=== PATIENT | female | born 1950 | race Caucasian/White ===

== ENCOUNTER → 2016-08-29 | Outpatient (CLI) | payer MEDICARE ==
[~2016-08-29] MED LIST: ALBUAER2 INH; BUPR-79 PO; CALCTAB7 PO; CHOL100027 PO; DENOINJ INJ; GABA-113 PO; LEVO88TA22 PO; LIOT5TAB PO; LORA-741 PO; MOMETASONE TOP; MULTTAB58 PO; ONDA8TAB6 PO; OXYC-57 PO; OXYC1TAB3 PO; PEMBROLIZUMAB IV; PROLAMINE IODINE PO; [UNRECOGNIZED DRUG - CODE] TOP; colace
--- NOTE | 2016-08-29 15:29 | DIAGNOSTIC IMAGING REPORT ---
PET/CT HISTORY: MELANOMA TECHNIQUE: PET/CT was performed from the skull vertex through the feet following the intravenous administration of 15 mCi of F18-FDG. Non-contrast CT imaging was performed over the same range without breath-hold for attenuation correction of PET images and anatomic correlation, but not for primary interpretation as it is not of standard diagnostic quality. CT DOSE: COMPARISON: PET CT 06/04/2016. FINDINGS: HEAD AND NECK: There are symmetric FDG uptake within the brain. There are are a few left posterior cervical chain lymph nodes which demonstrate monophasic uptake. These lymph nodes have slightly increased in size compared to the prior study. Dominant lymph node measures 8 mm, previously measuring 5 mm. These demonstrate an SUV max of 2.4. Small fluid level within the left maxillary sinus. CHEST: No FDG avid or enlarged mediastinal, hilar, or axillary lymph nodes. No pleural or pericardial effusions. Right jugular Port-A-Cath terminates in the SVC. Biapical pleural-parenchymal scarring persists. Bilateral paraspinal fibrotic change at the level of the posterior fusion is also stable. Stable to slightly improved patchy mild FDG uptake associated with the fibrotic change. Stable 7 mm nodule within the left lower lobe. The FDG uptake associated with the nodule has resolved in the interval. Stable 4 mm subpleural nodule at the base of the right lower lobe on image 131. This does not demonstrate abnormal FDG uptake. There is also stable 2 mm nodule within the right middle lobe on image 107. This does not demonstrate abnormal FDG uptake. No new pulmonary nodules identified. ABDOMEN/PELVIS: The FDG uptake at the superior margin of the spleen on the prior study has resolved. There are no FDG avid hepatic or splenic lesions. No FDG avid lymphadenopathy within the abdomen or pelvis. LOWER EXTREMITIES: The 14 mm sclerotic lesion within the proximal left tibia is again noted. This demonstrates decrease in FDG uptake with an SUV max of 3.5. This previously demonstrated an SUV max of 4.7. IMPRESSION: 1. Slight increase in size and mild FDG uptake within a few left posterior cervical chain lymph nodes. This is concerning for developing metastatic disease. 2. Otherwise, the additional sites of metastatic disease as described above demonstrate decreased or resolved FDG uptake consistent with improvement. Electronically signed by: Zelalem De León M.D. 08/29/2016 3:28 PM
== END | disposition home or self-care (01) ==
LOC: C.PET 08:28
PROVIDERS: ATTEND Nurse Practitioner Family
DX: C43.9 Malignant melanoma of skin, unspecified (principal); C79.51 Secondary malignant neoplasm of bone

== ENCOUNTER → 2016-09-20 | Outpatient (CLI) | payer MEDICARE ==
[~2016-09-20] MED LIST changes: -OXYC-57 PO
--- NOTE | 2016-09-20 10:10 | DIAGNOSTIC IMAGING REPORT ---
THYROID ULTRASOUND HISTORY: MALIGNANT MELANOMA OF SKIN COMPARISON: PET CT 08/29/2016. FINDINGS: Right lobe: 3.2 x 1.2 x 0.9 cm. No nodules. The gland is heterogeneously hypoechoic. Left lobe: 1.3 x 0.8 x 0.6 cm. No nodules. The gland is atrophic and heterogeneous hypoechoic. Isthmus: 2 mm in thickness. No nodules. IMPRESSION: Atrophic and heterogeneous thyroid gland. No nodules identified. Electronically signed by: Zelalem De León M.D. 09/20/2016 10:08 AM Dictated Date/Time: 09/20/2016 10:07 AM
== END | disposition home or self-care (01) ==
LOC: C.ULTR 09:14
PROVIDERS: ATTEND Nurse Practitioner Family
DX: C43.9 Malignant melanoma of skin, unspecified (principal); C79.51 Secondary malignant neoplasm of bone

== ENCOUNTER → 2016-12-05 | Outpatient (CLI) | payer MEDICARE ==
--- NOTE | 2016-12-05 13:02 | DIAGNOSTIC IMAGING REPORT ---
PET/CT CLINICAL HISTORY: Melanoma. COMPARISON STUDY: PET/CT dated 08/29/2016. TECHNIQUE: One hour following the IV administration of 12.93 mCi of F-18 FDG, whole body PET/CT examination was performed from the vertex to the feet. Noncontrast CT is performed for the purposes of anatomic correlation and attenuation correction. Note that this does not reflect a diagnostic CT examination. Images were reviewed on a separate [employer] independent workstation. Fused images were obtained. Standard uptake values reported are maximum values within the region of interest expressed in gm/mL. FINDINGS: PET FINDINGS: Head and neck: There is expected physiologic activity within the brain parenchyma and the salivary glands. Thorax: Evaluation of the thorax demonstrates expected physiologic myocardial activity. A 7 mm pulmonary nodule is again seen in the left lower lobe on image #134. This was not demonstrably FDG avid on today's examination. No new pulmonary nodules are identified. Paraspinous fibrotic change at the level of T5 is again noted. There is no significant FDG activity at this site. Abdomen and pelvis: There is expected activity within the liver, spleen, kidneys, renal collecting system, and bladder. Low-level bowel activity is likely within physical limits. No FDG avid lesions are identified. Lower extremities: A 1.5 cm sclerotic lesion is again seen in the left proximal tibia on axial image #73. This remains FDG avid with a maximum SUV of 2.9. Focal activity anterior to the right gallardo seen on axial image #157. This shows a maximum SUV of 2.1, and dermal thickening is again seen in this region. Unenhanced CT images: The brain parenchyma is normal as visualized. The bony orbits are intact and the orbital contents are within normal limits. The paranasal sinuses are clear. There is a left mastoid effusion. The salivary and thyroid glands are normal as imaged. No cervical lymphadenopathy is seen. There is atherosclerotic calcification of the carotid bulbs. The thoracic aorta is normal in caliber. The heart is normal in size and without pericardial effusion. There is no mediastinal, hilar, or axillary lymphadenopathy. Significant scarring is seen in the lower lobes of the lungs. No airspace consolidation or pleural effusion is identified. See above discussion under PET findings for evaluation of pulmonary lesions. A small hepatic cyst is incidentally noted. The unenhanced liver, gallbladder, spleen, pancreas, adrenal glands, and kidneys are grossly unremarkable. There is atherosclerotic calcification of the abdominal aorta which is normal in caliber. No bowel obstruction is seen. There is colonic diverticulosis without CT evidence of acute diverticulitis. No upper abdominal, retroperitoneal, pelvic sidewall, or inguinal lymphadenopathy is identified. The bladder is decompressed and grossly unremarkable. The uterus is surgically absent. No adnexal lesion is seen. The skeletal structures are osteopenic. A left hip arthroplasty is in place. Extensive fusion hardware is noted in the upper thoracic spine. IMPRESSION: 1. There is no evidence of progressive metastatic disease as compared to 08/29/2016. 2. Mildly FDG avid cervical chain lymph nodes suggested on the 12/05/2016 examination are no longer appreciated. No FDG avid cervical nodes are seen on today's examination. 3. Again seen is a 1.5 cm FDG avid sclerotic lesion in the left tibia. 4. Focal dermal activity is again seen in the anterior right ankle. 5. A 7 mm left lower lobe pulmonary nodule is unchanged in appearance. This was not demonstrably FDG activity on today's examination. 6. Paraspinous fibrotic change at T5 is similar to previous. 7. Additional findings as above. Electronically signed by: Sterling Potter M.D. 12/05/2016 1:00 PM Dictated Date/Time: 12/05/2016 12:43 PM
== END | disposition home or self-care (01) ==
LOC: C.PET 09:27
PROVIDERS: ATTEND Nurse Practitioner Family
DX: C43.9 Malignant melanoma of skin, unspecified (principal)

== ENCOUNTER → 2017-02-01 | Outpatient (CLI) | payer MEDICARE ==
[~2017-02-01] MED LIST changes: +GADAVIST IV PRN
--- NOTE | 2017-02-01 12:12 | DIAGNOSTIC IMAGING REPORT ---
CT SCAN OF THE THORACIC SPINE WITHOUT IV CONTRAST CLINICAL HISTORY: Thoracic back pain. History of previous thoracic spinal mass and surgery. COMPARISON STUDY: MRI of the thoracic spine dated 12/23/2014. CT scan of the thoracic spine dated 08/14/2013. PET/CT dated 12/05/2016. TECHNIQUE: CT scan of the thoracic spine is performed from the lower cervical spine to the upper lumbar spine. Images are reviewed in the axial, sagittal, and coronal planes. IV contrast was not administered for this examination. The examination is significantly degraded by streak artifact from metallic orthopedic spinal hardware. CT DOSE: 833.39 mGy.cm FINDINGS: The skeletal structures are osteopenic. There is evidence of previous surgical resection involving T5 with a severe compression deformity at this level status post vertebroplasty. Retropulsed fragments are similar to previous and cause severe central canal stenosis at this level. Fragments are retropulsed by up to 9 mm. Vertebral body height is otherwise maintained throughout the thoracic spine. Hyperkyphosis is observed. There are postoperative changes from laminectomy and posterior fusion seen from T3 through T8. The orthopedic hardware is intact as visualized. Intrapedicular screws are present at all levels with the exception of T4. There is unchanged permeative destruction of the right transverse process of T4. There is ill-defined abnormal soft tissue throughout this region, with a rind of abnormal paravertebral soft tissue seen anteriorly at T4. This extends approximately 3 cm in craniocaudal length, from the levels of T4 through T6. The rind of tissue measures up to 1.2 cm in thickness. No destructive bony lesions are seen at any of the remaining thoracic levels. Degenerative endplate sclerosis is seen at T4-T5 and T5-T6. There is likely an acute insufficiency fracture involving the inferior endplate of T4. This is best seen on sagittal image number 28. There is a chronic right posterior sixth rib fracture. Spondylotic change is partially imaged in the lower cervical region. There are 1 to 2 mm pulmonary nodules seen at the right lung base. Linear atelectasis versus scarring is noted at the left lung base. A central venous infusion port is partially imaged. IMPRESSION: 1. The examination is significantly degraded by streak artifact from extensive orthopedic spinal hardware. 2. There are postoperative changes involving the T5 vertebral body with a severe compression deformity at this level and evidence of previous vertebroplasty. 3. Large retropulsed fragments at T5 contribute to severe central canal stenosis at this level. 4. There is an acute to subacute insufficiency fracture involving the inferior endplate of T4. 5. Abnormal soft tissue is seen at the operative level at T5 with a rind of abnormal paravertebral soft tissue. This has not significantly changed from the 12/05/2016 PET assessment. This was not demonstrably FDG avid and likely represents postoperative change/fibrosis. Residual tumor would be impossible to exclude. 6. Additional findings as above. Dictated: 02/01/2017 10:39 AM Transcribed: 02/01/2017 12:12 PM [email or web address] Electronically signed by: Sterling Potter M.D. 02/01/2017 12:24 PM Dictated Date/Time: 02/01/2017 10:39 AM
--- NOTE | 2017-02-01 13:26 | DIAGNOSTIC IMAGING REPORT ---
MRI OF THE THORACIC SPINE COMBO CLINICAL HISTORY: Thoracic back pain. 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 COMPARISON STUDY: CT scan of the thoracic spine performed concurrently on 02/01/2017. MRI of the thoracic spine dated 12/23/2014. PET/CT dated 12/05/2016. TECHNIQUE: MRI of the thoracic spine is performed utilizing various T1 and T2-weighted sequences in the axial and sagittal planes. Contrast-enhanced sequences are acquired following the IV administration of 7.4 cc of Gadavist. The examination is significantly compromised by susceptibility artifact from orthopedic spinal hardware. This severely compromises interpretation. The examination is also degraded by motion artifact. FINDINGS: Again seen are postoperative changes from resection of T5. There is a severe compression deformity of T5. Susceptibility artifact at this level is consistent with previous vertebroplasty when correlated with the prior CT scan. Retropulsed fragments at this level contribute to moderate to severe compromise of the central canal. The minimum AP diameter measures approximately 6 mm. Vertebral body height is otherwise maintained throughout the thoracic spine. There are postoperative changes from laminectomy and posterior fusion from T3 through T8. Assessment of the marrow signal at these levels is severely degraded. The inferior endplate insufficiency fracture seen by CT is not apparent by MRI. There is soft tissue identified posteriorly and to the right at T5 at the previous operative site. There is a rind of abnormal paravertebral soft tissue edema seen at T5. This is unchanged from previous. Visualized portions of the thoracic spinal cord are grossly normal in morphology and signal intensity. This is not well evaluated. No abnormal enhancement is suggested. The conus medullaris terminates at the level of L1. Mild degenerative disc desiccation is noted throughout the thoracic spine. No large disc herniation is seen. Disc bulge is noted at L1-L2. There is no evidence of neural foraminal stenosis in the lower thoracic region. The upper thoracic region is not well visualized. No pleural effusion is seen. IMPRESSION: 1. Significantly compromised examination due to extensive susceptibility artifact from orthopedic hardware. 2. There is postoperative change involving T5 with a severe compression deformity, evidence of previous vertebroplasty, and a large retropulsed fragment at this level contributing to moderate to severe central canal stenosis. 3. The inferior endplate insufficiency fracture of T4 suggested by CT is not apparent by MRI. The marrow signal is obscured by susceptibility artifact. 4. Abnormal soft tissue at the operative level at T5 with a rind of abnormal paravertebral soft tissue at this level that is unchanged from prior studies. This likely represents scarring/fibrosis, as this was not PET avid on the recent PET/CT. 5. Additional findings as above. Dictated: 02/01/2017 12:35 PM Transcribed: 02/01/2017 1:25 PM [email or web address] Electronically signed by: Sterling Potter M.D. 02/01/2017 1:45 PM Dictated Date/Time: 02/01/2017 12:35 PM
== END | disposition home or self-care (01) ==
LOC: C.CTS 09:46
PROVIDERS: ATTEND Specialist
DX: M54.40 Lumbago with sciatica, unspecified side (principal)

== ENCOUNTER → 2017-03-04 | Outpatient (CLI) | payer OTHER ==
[~2017-03-04] MED LIST changes: -GADAVIST IV PRN
--- NOTE | 2017-03-05 08:06 | DIAGNOSTIC IMAGING REPORT ---
PET/CT CLINICAL HISTORY: Melanoma. COMPARISON STUDY: Prior PET/CT scans, most recently dated 12/05/2016 and 08/29/2016. TECHNIQUE: One hour following the IV administration of 13.4 mCi of F-18 FDG, whole body PET/CT examination was performed from the vertex to the feet. Noncontrast CT is performed for the purposes of anatomic correlation and attenuation correction. Note that this does not reflect a diagnostic CT examination. Images were reviewed on a separate [employer] independent workstation. Fused images were obtained. Standard uptake values reported are maximum values within the region of interest expressed in gm/mL. FINDINGS: PET FINDINGS: Head and neck: There is expected physiologic activity within the brain parenchyma and the salivary glands. Low level pharyngeal activity is likely within physiologic limits. Mildly FDG avid left cervical chain lymph nodes are seen on image #58. These measure up to 9 mm and show maximum SUV of 3.0. Thorax: Evaluation of the thorax demonstrates expected physiologic myocardial activity. A 7 mm pulmonary nodule is again seen in the left lower lobe on image #127. This was not demonstrably FDG avid on today's examination. No new pulmonary nodules are identified. Paraspinous fibrotic change at the level of T5 is again noted. There is evidence of hardware removal from the thoracic spine as compared to 12/05/2016. There is evidence of previous vertebroplasty of T5. Large retropulsed fragments are identified. There is nonspecific abnormal FDG activity throughout the operative region. This demonstrates a maximum SUV of 5.0. Abdomen and pelvis: There is expected activity within the liver, spleen, kidneys, renal collecting system, and bladder. Low-level bowel activity is likely within physical limits. No FDG avid lesions are identified. Lower extremities: A 1.5 cm sclerotic lesion is again seen in the left proximal tibia on axial image #68. This remains FDG avid with a maximum SUV of 3.4. Focal activity anterior to the right gallardo seen on axial image #149. This shows a maximum SUV of 2.0, and dermal thickening is again seen in this region. Unenhanced CT images: The brain parenchyma is normal as visualized. The bony orbits are intact and the orbital contents are within normal limits. The paranasal sinuses mastoid air cells appear clear. The salivary and thyroid glands are normal as imaged. No cervical lymphadenopathy is seen. There is atherosclerotic calcification of the carotid bulbs. A right internal jugular central venous infusion port is in place. The thoracic aorta is normal in caliber. The heart is normal in size and without pericardial effusion. There is no mediastinal, hilar, or axillary lymphadenopathy. Significant scarring is seen in the lower lobes of the lungs. No airspace consolidation or pleural effusion is identified. See above discussion under PET findings for evaluation of pulmonary lesions. A small hepatic cyst is incidentally noted. The unenhanced liver, gallbladder, spleen, pancreas, adrenal glands, and kidneys are grossly unremarkable. There is atherosclerotic calcification of the abdominal aorta which is normal in caliber. No bowel obstruction is seen. There is colonic diverticulosis without CT evidence of acute diverticulitis. No upper abdominal, retroperitoneal, pelvic sidewall, or inguinal lymphadenopathy is identified. The bladder is decompressed and grossly unremarkable. The uterus is surgically absent. No adnexal lesion is seen. The skeletal structures are osteopenic. A left hip arthroplasty is in place. Postoperative changes identified in the thoracic spine are discussed above. IMPRESSION: 1. Mildly FDG avid left cervical chain lymph nodes are identified, and measure less than 1 cm in length. These were not FDG avid on the 12/05/2016 examination but did show FDG uptake on the 08/29/2016 examination. These remain indeterminant and may be on a reactive basis given recent thoracic surgery. Attention at follow-up is recommended. 2. There is evidence of interval hardware removal from the thoracic spine as compared to 12/05/2016. There is diffuse FDG activity in this region which is nonspecific and likely related to recent surgery. 3. Again seen is a 1.5 cm FDG avid sclerotic lesion in the left tibia. 4. Focal dermal activity is again seen in the anterior right ankle. 5. A 7 mm left lower lobe pulmonary nodule is unchanged in appearance. This was not demonstrably FDG but is likely too small for PET characterization. No new pulmonary nodules are clearly visualized. 6. Paraspinous fibrotic change at T5 is similar to previous likely treatment related. 7. Pharyngeal activity is likely within physiologic limits. Attention at follow-up is recommended. 8. Additional findings as above. Electronically signed by: Sterling Potter M.D. 03/05/2017 8:05 AM Dictated Date/Time: 03/05/2017 7:44 AM
== END | disposition home or self-care (01) ==
LOC: C.PET 14:28
PROVIDERS: ATTEND Internal Medicine Hematology & Oncology
DX: C43.9 Malignant melanoma of skin, unspecified (principal); C79.51 Secondary malignant neoplasm of bone

== ENCOUNTER → 2017-05-17 | Outpatient (CLI) | payer OTHER ==
--- NOTE | 2017-05-17 13:02 | DIAGNOSTIC IMAGING REPORT ---
CHEST 2 VIEWS ROUTINE CLINICAL HISTORY: SOB MALIGNANT MELANOMA COMPARISON STUDY: 11/21/2015 FINDINGS: There is a right-sided A-Port catheter projected over the superior vena cava. The spinal hardware has been removed. The heart is the upper limits of normal in size. The patient is hyperinflated. There is no focal pulmonary consolidation. There are no pleural effusions. Linear left basilar opacities are likely atelectatic. There is evidence for prior upper thoracic vertebral plasty. There are right paravertebral densities, likely postinflammatory/fibrotic.[ IMPRESSION: No active disease in the chest. Electronically signed by: Claudio Conner M.D. 05/17/2017 1:01 PM Dictated Date/Time: 05/17/2017 12:59 PM
--- NOTE | 2017-05-17 14:00 | DIAGNOSTIC IMAGING REPORT ---
NUCLEAR PULMONARY VENTILATION/PERFUSION SCAN CLINICAL HISTORY: Dyspnea. COMPARISON STUDY: Chest x-ray dated 05/17/2017. Correlation is made with chest CT dated 08/05/2015. TECHNIQUE: Initially, ventilation images of both lungs are obtained following the inhalation of 32.1 mCi of aerosolized technetium 99m DTPA. Subsequently, perfusion images of both lungs were obtained following the IV administration of 5.5 mCi of technetium 99m MAA. Ventilation and perfusion images were acquired in the anterior, posterior, and oblique projections. FINDINGS: A chest x-ray performed 05/17/2017 shows chronic interstitial thickening. No airspace consolidation or pleural effusion is identified. The ventilation of both lungs is heterogeneous and symmetric. Deposition of tracer within the central airways suggests obstructive physiology. Inhaled tracer is present in the stomach. Pulmonary perfusion is slightly heterogeneous. No segmental perfusion defects are identified. IMPRESSION: Findings are considered low probability for pulmonary embolus. Electronically signed by: Sterling Potter M.D. 05/17/2017 1:59 PM Dictated Date/Time: 05/17/2017 1:56 PM
== END | disposition home or self-care (01) ==
LOC: C.NUCL 12:19
PROVIDERS: ATTEND Nurse Practitioner Family
DX: C45.9 Mesothelioma, unspecified (principal); C79.51 Secondary malignant neoplasm of bone

== ENCOUNTER → 2017-05-30 | Outpatient (CLI) | payer OTHER ==
--- NOTE | 2017-06-03 14:45 | PULMONARY FUNCTION TEST ---
CLINICAL DATA: 67-year-old female with a height of 68 inches and a weight of 106 pounds referred SANDRA Valdez for evaluation of shortness of breath in the setting of malignant melanoma and bone cancer. Spirometry pre- and post-bronchodilator, lung volumes, and DLCO were performed. FINDINGS: Pre-bronchodilator spirometry is within normal limits. FVC was 85% of predicted. FEV1 was 86% of predicted. [id number] was 83% of predicted. There was no significant change after inhaled bronchodilator. Lung volumes show a very slight reduction in residual volume at 66% of predicted. Otherwise, lung volumes are normal. DLCO is mildly reduced at 70% of predicted with a normal dlco/VA of 113% of predicted. IMPRESSION: Normal baseline spirometry with no significant improvement after inhaled bronchodilator. Minimal reduction in residual volume. Mild reduction in DLCO with normal dlco/VA. MTDD
== END | disposition home or self-care (01) ==
LOC: C.RC 13:30
PROVIDERS: ATTEND Nurse Practitioner Family
DX: C43.9 Malignant melanoma of skin, unspecified (principal); C79.51 Secondary malignant neoplasm of bone

== ENCOUNTER → 2017-07-25 | Outpatient (CLI) | payer OTHER ==
--- NOTE | 2017-07-25 12:39 | DIAGNOSTIC IMAGING REPORT ---
(BARIUM SWALLOW) ESOPHAGUS CLINICAL HISTORY: C43.9 MelanomaDO NOT NAVID JUL 09, JUL 16 IN PM OR AUG 06 IN PMRADdysphagia COMPARISON STUDY: None FLUOROSCOPY TIME: 1.0 minutes. FINDINGS: Patient initiated swallowing function well. Esophagus is normal in course and caliber. Mild esophageal irritability. Patient ingested barium tablet medially which passed quickly into the stomach. IMPRESSION: Mild esophageal spasm and/or irritability. Otherwise negative study. The above report was generated using voice recognition software. It may contain grammatical, syntax or spelling errors. Electronically signed by: Ghulam Fine M.D. 07/25/2017 12:38 PM Dictated Date/Time: 07/25/2017 12:37 PM
--- NOTE | 2017-07-25 12:41 | DIAGNOSTIC IMAGING REPORT ---
Study: sniff test. HISTORY: Melanoma. Dysphagia. Fluoroscopic time: 12 seconds FINDINGS: Both diaphragms move appropriately. There is no evidence for diaphragmatic paralysis. There is no paradoxical motion. IMPRESSION: Normal study Electronically signed by: Ghulam Fine M.D. 07/25/2017 12:40 PM Dictated Date/Time: 07/25/2017 12:39 PM
--- NOTE | 2017-07-25 14:41 | ECHOCARDIOGRAM REPORT ---
*NOTICE TO RECEIVING [employer] This information is strictly Confidential and protected under [place] law. [place] law prohibits you from making any further disclosure of this information unless further disclosure is expressly permitted by the written consent of the person to whom it pertains or is authorized by law. A general authorization for the release of medical or other information is not sufficient for this purpose. Hospital accepts no responsibility if the information is made available to any other person, INCLUDING THE PATIENT. Interpretation Summary * Name: CHAS ENAMORADO Study Date: 07/25/2017 12:51 PM BP: 132/66 mmHg * Patient Location: [facility] HR: 78 * : 1950 (M/d/yyyy) Gender: Female Height: 66 in * Age: 67 yrs Ethnicity: CA Weight: 160 lb * Ordering Physician: Babak Lovelace * Referring Physician: Babak Lovelace * Performed By: Denae Almanza RDCS * * Reason For Study: Shortness of Breath, Pulmonary Nodules * BSA: 1.8 m2 * -- Conclusions -- * Left ventricular systolic function is normal. * Grade I diastolic dysfunction, (abnormal relaxation pattern). Procedure Details * A complete two-dimensional transthoracic echocardiogram was performed (2D, M-mode, Doppler and color flow Doppler). Left Ventricle * The left ventricle is normal in size. * There is normal left ventricular wall thickness. * Ejection Fraction = 55-60%. * Left ventricular systolic function is normal. * Grade I diastolic dysfunction, (abnormal relaxation pattern). * The left ventricular wall motion is normal. Right Ventricle * The right ventricle is normal in size and function. * The right ventricular systolic function is normal as assessed by tricuspid annular plane systolic excursion (TAPSE) (normal >1.5 cm). Atria * The left atrial size is normal. * Right atrial size is normal. Mitral Valve * The mitral valve anatomy is normal. * There is trace mitral regurgitation. Tricuspid Valve * The tricuspid valve is not well visualized, but is grossly normal. * Significant tricuspid regurgitation is absent. Aortic Valve * The aortic valve is normal in structure and function. * The aortic valve is trileaflet. * No hemodynamically significant valvular aortic stenosis. * Trace aortic regurgitation. Pericardium/Pleural * There is no pericardial effusion. MMode 2D Measurements and Calculations IVSd 0.71 cm IVSs 1.1 cm LVIDd 4.6 cm LVIDs 3.2 cm LVPWd 0.79 cm LVPWs 1.3 cm IVS/LVPW 0.90 FS 30.8 % EDV(Teich) 99.8 ml ESV(Teich) 41.6 ml EF(Teich) 58.4 % EDV(cubed) 100.5 ml ESV(cubed) 33.4 ml EF(cubed) 66.8 % % IVS thick 55.3 % % LVPW thick 68.8 % LV mass(C)d 110.5 grams LV mass(C)dI 60.8 grams/m\S\2 LV mass(C)s 123.4 grams LV mass(C)sI 67.8 grams/m\S\2 SV(Teich) 58.3 ml SI(Teich) 32.0 ml/m\S\2 SV(cubed) 67.2 ml SI(cubed) 36.9 ml/m\S\2 Ao root diam 2.9 cm Ao root area 6.7 cm\S\2 ACS 2.2 cm LA dimension 3.2 cm LA/Ao 1.1 LVAd ap4 28.9 cm\S\2 LVLd ap4 7.6 cm EDV(MOD-sp4) 92.4 ml EDV(sp4-el) 93.5 ml LVAs ap4 14.6 cm\S\2 LVLs ap4 5.9 cm ESV(MOD-sp4) 32.3 ml ESV(sp4-el) 30.6 ml EF(MOD-sp4) 65.1 % EF(sp4-el) 67.2 % LVAd ap2 25.7 cm\S\2 LVLd ap2 7.9 cm EDV(MOD-sp2) 75.8 ml EDV(sp2-el) 71.1 ml LVAs ap2 15.3 cm\S\2 LVLs ap2 6.7 cm ESV(MOD-sp2) 32.4 ml ESV(sp2-el) 29.7 ml EF(MOD-sp2) 57.3 % EF(sp2-el) 58.2 % LVLd %diff 3.7 % EDV(MOD-bp) 84.0 ml LVLs %diff 12.4 % ESV(MOD-bp) 34.4 ml EF(MOD-bp) 59.1 % SV(MOD-sp4) 60.2 ml SI(MOD-sp4) 33.1 ml/m\S\2 SV(MOD-sp2) 43.4 ml SI(MOD-sp2) 23.9 ml/m\S\2 SV(MOD-bp) 49.6 ml SI(MOD-bp) 27.3 ml/m\S\2 SV(sp4-el) 62.9 ml SI(sp4-el) 34.6 ml/m\S\2 SV(sp2-el) 41.4 ml SI(sp2-el) 22.7 ml/m\S\2 Doppler Measurements and Calculations MV E max bhavana 75.7 cm/sec MV A max bhavana 80.0 cm/sec MV E/A 0.95 MV dec time 0.21 sec Ao V2 max 120.8 cm/sec Ao max PG 5.8 mmHg Ao max PG (full) 3.0 mmHg AI max bhavana 188.7 cm/sec AI max PG 14.2 mmHg AI dec slope 142.8 cm/sec\S\2 AI P1/2t 387.0 msec LV V1 max PG 2.8 mmHg LV V1 max 84.4 cm/sec PA V2 max 66.2 cm/sec PA max PG 1.8 mmHg
== END | disposition home or self-care (01) ==
LOC: C.RAD 11:14
PROVIDERS: ATTEND Internal Medicine Critical Care Medicine
DX: C43.9 Malignant melanoma of skin, unspecified (principal); R06.02 Shortness of breath; R91.8 Other nonspecific abnormal finding of lung field

== ENCOUNTER 2017-10-30 14:42 | Emergency (ER) | payer OTHER ==
[~2017-10-30] VITALS: Ht 168.9 cm; Wt 75.0 kg
[2017-10-30 14:46] VITALS: TEMP 36.8; Ht 168.9 cm; Wt 75.0 kg
[2017-10-30] MEDS ORDERED: BUPR150T5 PO (15:33)
[2017-10-30] MEDS ORDERED: CLOB0.058 TD (15:33)
[2017-10-30] MEDS ORDERED: LEVO88TA3 PO (15:33)
[2017-10-30] MEDS ORDERED: PROLAMINE IODINE PO (15:33)
[2017-10-30] MEDS ORDERED: AUG0.05O4 (15:33)
[2017-10-30] MEDS ORDERED: DICL1GEL12 TOP (15:33)
[2017-10-30] MEDS ORDERED: MOME0.1O TOP (15:33)
[2017-10-30] MEDS ORDERED: METH5TAB2 PO (15:33)
[2017-10-30] MEDS ORDERED: DPRSCR45 TOP (15:33)
[2017-10-30 16:00] LABS: BASO % 0.6 %; BASO ABS # 0.02 K/uL (0-0.2); EOS % 4.9 %; EOS ABS # 0.16 K/uL (0-0.5); HEMATOCRIT 37.1 % (37-47); HEMOGLOBIN 12.5 g/dL (12.0-16.0); LYMPH % 29.9 %; LYMPH ABS # 0.97 K/uL (1.2-3.4); MEAN CELL VOLUME 91.4 fL (80-100); MEAN CORPUSCULAR HEMOGLOBIN 30.8 pg (25-34); MEAN CORPUSCULAR HGB CONC 33.7 g/dl (32-36); MEAN PLATELET VOLUME 10.5 fL (7.4-10.4); MONO ABS # 0.39 K/uL (0.11-0.59); NEUT % 52.6 %; PLATELET COUNT 131 K/uL (130-400); RED CELL DISTRIBUTION WIDTH CV 13.4 % (11.5-14.5); RED CELL DISTRIBUTION WIDTH SD 44.6 fL (36.4-46.3); WHITE BLOOD COUNT 3.24 K/uL (4.8-10.8)
[2017-10-30 16:09] LABS: PTT PATIENT 29.1 SECONDS (21.0-31.0)
[2017-10-30 16:19] LABS: ALBUMIN 3.6 gm/dl (3.4-5.0); ALT/SGPT 24 U/L (12-78); BLOOD UREA NITROGEN 10 mg/dl (7-18); CALCIUM 8.8 mg/dl (8.5-10.1); CARBON DIOXIDE 28 mmol/L (21-32); CREATININE 0.72 mg/dl (0.60-1.20); GLUCOSE 123 mg/dl (70-99); LIPASE 189 U/L (73-393); POTASSIUM 3.7 mmol/L (3.5-5.1); SODIUM 139 mmol/L (136-145)
[2017-10-30 16:22] LABS: ALKALINE PHOSPHATASE 95 U/L (45-117); AST/SGOT 18 U/L (15-37); TOTAL PROTEIN 6.8 gm/dl (6.4-8.2)
[2017-10-30] MEDS ORDERED: GADAVIST IV PRN (19:30)
--- NOTE | 2017-10-30 20:05 | DIAGNOSTIC IMAGING REPORT ---
MRI OF THE BRAIN COMBO CLINICAL HISTORY: Bilateral lower extremity weakness and numbness. History of metastatic melanoma. COMPARISON STUDY: MRI of the brain dated 02/16/2016. TECHNIQUE: MRI of the brain was performed utilizing various T1 and T2-weighted sequences in the axial, sagittal, and coronal planes. Contrast-enhanced sequences were acquired following the administration of 7.5 cc of Gadavist. FINDINGS: Brain parenchyma: There is mild subcortical and periventricular microangiopathic disease. There is no hemorrhage or mass effect. There is no restricted diffusion to suggest acute ischemia. No enhancing mass lesion is identified on the postcontrast images. Raymond-white matter differentiation is preserved. No extra-axial fluid collection is seen. The cerebellar tonsils are normal in configuration. Ventricles, sulci, and cisterns: Normal in configuration. Pituitary and sella: Unremarkable. Intracranial vasculature: Normal flow voids are maintained at the skull base. Orbits: The bony orbits are grossly intact. Orbital contents are normal in appearance noting bilateral ocular lens implants. Sinuses and mastoids: Clear. Calvarium: Unremarkable. Cervical cord: Partially visualized cervical spinal cord is normal in morphology and signal intensity. IMPRESSION: No acute intracranial abnormality. Electronically signed by: Sterling Potter M.D. 10/30/2017 8:03 PM Dictated Date/Time: 10/30/2017 8:00 PM
--- NOTE | 2017-10-30 20:49 | DIAGNOSTIC IMAGING REPORT ---
MRI OF THE THORACIC SPINE COMBO CLINICAL HISTORY: Bilateral lower extremity weakness and numbness. 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 COMPARISON STUDY: MRI of the thoracic spine dated 02/01/2017. CT scan of the thoracic spine dictated 02/01/2017. PET/CT dated 05/31/2017. TECHNIQUE: MRI of the thoracic spine is performed utilizing various T1 and T2-weighted sequences in the axial and sagittal planes. Contrast-enhanced sequences are acquired following the IV administration of 7.5 cc of Gadavist. The examination is significantly compromised by motion artifact. FINDINGS: Again seen are postoperative changes from resection of T5. There is a severe compression deformity of T5. Susceptibility artifact at this level is consistent with previous vertebroplasty when correlated with the prior CT scan. Retropulsed fragments at this level contribute to moderate to severe compromise of the central canal. The minimum AP diameter measures approximately 5 mm. Again seen are postoperative changes from laminectomy from T3 through T8. Interpedicular screws have been removed previous. There is a mild chronic inferior endplate compression deformity of T4. There is a mild acute superior endplate insufficiency fracture of T6 with significant marrow edema. Vertebral body height is otherwise maintained throughout the thoracic spine. There is significant hyperkyphosis centered at T5. Again seen is a rind of abnormal enhancing paravertebral soft tissue edema at the T5 level which is unchanged from prior examinations. There is no clear evidence of enhancing soft tissue impingement on the central canal. There is myelomalacia identified within the cervical cord at the T5 level, likely related to chronic stenosis. No abnormal cord enhancement is suggested the postcontrast series. The conus medullaris terminates at the level of L1. Mild degenerative disc desiccation is noted throughout the thoracic spine. No large disc herniation is seen. Disc bulge is noted at L1-L2 and L2-L3. There is likely bilateral neural foraminal stenosis at T4-T5 and T5-T6. IMPRESSION: 1. Significantly motion compromised examination. 2. Again seen are postoperative changes involving T5 with a severe compression deformity at this level, evidence of previous vertebroplasty, and a large retropulsed fragment which causes moderate to severe central canal stenosis. Orthopedic hardware has been removed from previous. 3. There is myelomalacia and thinning of the cervical cord at the level of T5, almost certainly chronic. No abnormal enhancement is seen. 4. There is a mild acute superior endplate fracture of T6 with significant marrow edema. 5. There is a mild chronic inferior endplate compression deformity of T4. 6. There is unchanged appearance of an enhancing rind of paravertebral soft tissue at T5 as compared to prior study. This likely represents scarring/fibrosis. 7. There is no clear evidence of an enhancing soft tissue lesion impinging on the central canal. 8. No new bony metastatic lesion is suggested. Electronically signed by: Sterling Potter M.D. 10/30/2017 8:48 PM Dictated Date/Time: 10/30/2017 8:36 PM
--- NOTE | 2017-10-30 21:17 | DIAGNOSTIC IMAGING REPORT ---
MRI OF THE CERVICAL SPINE COMBO CLINICAL HISTORY: Bilateral lower extremity weakness and numbness. History of metastatic melanoma. COMPARISON STUDY: CT scan of the neck dated 08/05/2015. TECHNIQUE: MRI of the cervical spine is performed using various T1 and T2-weighted sequences in the axial and sagittal planes. Contrast-enhanced images were acquired following the IV administration of 7.5 cc of Gadavist. The examination is significantly compromised by motion artifact. FINDINGS: Cervical spine: Vertebral body height is maintained throughout the cervical spine. There is minimal anterolisthesis at C4-C5 and minimal retrolisthesis at C5-C6. Alignment is otherwise preserved. Mild hyperlordosis is identified. The spinous processes appear intact. The atlantodental articulation appears maintained noting productive degenerative change. No destructive bony lesion is suggested in the cervical region. Intervertebral discs: Degenerative disc desiccation and loss of height is seen throughout the cervical spine. Loss of disc height is moderate at C5-C6. Spinal cord: The cervical spinal cord is normal in morphology and signal intensity. No abnormal enhancement is identified on the postcontrast sequences. C2-C3: Unremarkable. C3-C4: Uncovertebral and facet arthropathy cause moderate left neural foraminal stenosis. The central canal is clear. C4-C5: A posterior disc osteophyte complex effaces the ventral subarachnoid space. Facet arthropathy causes mild left-sided neural foraminal stenosis. C5-C6: A small posterior disc osteophyte complex abuts the ventral cord. Uncovertebral and facet arthropathy causes moderate to severe bilateral neural foraminal stenosis. C6-C7: A posterior disc osteophyte complex abuts the ventral cord. Uncovertebral arthropathy causes mild bilateral neuroforaminal stenosis. C7-T1: Unremarkable. Soft tissues: The paraspinous and prevertebral soft tissues are normal as visualized. Brain parenchyma: The partially imaged brain parenchyma the skull base is normal in appearance. IMPRESSION: 1. No destructive bony lesion is seen involving the cervical spine. 2. The cervical spinal cord is normal in morphology and signal intensity. 3. Cervical spondylosis as above. Electronically signed by: Sterling Potter M.D. 10/30/2017 9:16 PM Dictated Date/Time: 10/30/2017 8:10 PM
--- NOTE | 2017-10-30 21:18 | DIAGNOSTIC IMAGING REPORT ---
MRI LUMBAR SPINE COMBO CLINICAL HISTORY: Bilateral lower extremity weakness and numbness. History of metastatic melanoma. COMPARISON STUDY: PET/CT dated 05/31/2017. TECHNIQUE: MRI of the lumbar spine is performed utilizing various T1 and T2-weighted sequences in the axial and sagittal planes. Contrast-enhanced images are acquired following the IV administration of 7.5 cc of Gadavist. The Examination is significantly compromised by motion artifact. FINDINGS: Lumbar spine: Vertebral body height and alignment are maintained at the lumbar spine. Marrow signal intensity is heterogeneous. No destructive bony lesion is clearly seen. Tiny anterior osteophytes are seen throughout. The transverse and spinous processes appear intact. There is no evidence of spondylolysis. Degenerative endplate edema is seen at L2-L3. Intervertebral discs: Degenerative disc desiccation an loss of height are seen throughout the lumbar spine. Loss of height is severe at L5-S1, and mild/moderate at the remaining lumbar levels. Spinal cord: The partially imaged spinal cord is normal in morphology and signal intensity. The conus medullaris terminates at the level of L1. The nerve roots of the cauda equina are normal in morphology. No abnormal enhancement is seen on the postcontrast series. L1-L2: There is a small posterior disc bulge with annular fissure. There is no significant acquired compromise of the central canal. The neural foramina are patent. L2-L3: There is a small posterior disc bulge. There is no significant acquired compromise of the central canal. There is left-sided subarticular stenosis. The disc bulge may abut the exiting left L2 and the transiting bilateral L3 nerve roots. L3-L4: Facet arthropathy causes mild left neural foraminal stenosis. The central canal is patent. L4-L5: Facet arthropathy is of no consequence. The central canal neural foramina are patent. L5-S1: There is a posterior disc bulge. The central canal and neural foramina are clear. Mild facet arthropathy is of no consequence. Sacrum: The visualized sacrum is normal in morphology and signal intensity. Soft tissues: There is fatty atrophy of the paraspinous musculature. The partially visualized retroperitoneal structures are grossly unremarkable but incompletely assessed. IMPRESSION: 1. There is no convincing MRI evidence of metastatic disease involving the lumbar spine. 2. There is no disc herniation or central canal stenosis. 3. Mild lumbosacral spondylosis as above. Electronically signed by: Sterling Potter M.D. 10/30/2017 9:17 PM Dictated Date/Time: 10/30/2017 8:17 PM
--- NOTE | 2017-10-30 22:13 | EMERGENCY ROOM VISIT NOTE ---
History Report prepared by Roxane: Amna Golden Under the Supervision of: Dr. Rodo Pelaez D.O. First contact with patient: 14:52 Chief Complaint: BILATERAL LEG WEAKNESS Stated Complaint: NUMBNESS WAIST DOWN, WEAKNESS, KNEES GIVE OUT History of Present Illness The patient is a 67 year old female who presents to the Emergency Room with complaints of worsening weakness starting 2.5 months ago. The patient has had weakness and numbness in both her legs. The patient was tried on steroids for polymyalgia rheumatica to no significant relief. The numbness has now spread up to her waist. She states that she has been having difficulty walking. She reports feeling pressure in her lower back. She has some nausea with the pain. She has noticed her hands have been falling asleep at night. She feels like she has had trouble writing with her hands. She has a history of metastatic melanoma. She had a tumor on T5 and in her lungs. It did not spread to her brain. She has had several back surgeries. She reports her PET scan 3 weeks ago was clean. She is currently not on treatment. She has had some trouble urinating since her back surgeries. The urinary symptoms seem to be getting worse. She notes that the urge to have a bowel movement comes suddenly. She denies any vision problems, headaches, fever, or neck pain. She denies any alcohol or tobacco use. She has a history of hypothyroidism. Source of History: patient Onset: 2.5 months ago Position: leg (bilateral) Quality: other (weakness) Timing: worsening Associated Symptoms: + nausea, + back pain, + urinary symptoms, + numbness, No fevers, No headache, No neck pain Review of Systems See HPI for pertinent positives & negatives. A total of 10 systems reviewed and were otherwise negative. Past Medical & Surgical Medical Problems: (1) Melanoma Family History No pertinent family history stated. Social History Smoking Status: Never Smoker Drug Use: none Marital Status: Housing Status: lives with family Occupation Status: retired Current/Historical Medications Scheduled Bupropion Hcl (Bupropion Hcl Xl), 150 MG PO DAILY Calcium Carbonate-Vitamin D W/ (Caltrate 600 Plus), 0.5 TAB PO DAILY Cholecalciferol (Vitamin D 1000 Unit), 3,000 INTER.UNIT PO DAILY Denosumab (Xgeva), 120 MG INJ UD Gabapentin (Neurontin), 300 MG PO QID Levothyroxine Sodium (Levothyroxine Sodium), 88 MCG PO DAILY Liothyronine Sodium (Cytomel), 5 MCG PO DAILY Methadone Hcl (Dolophine), 5 MG PO TID Multiple Vitamin (Multivitamin), 1 TAB PO DAILY [Prolamine Iodine], 1-3 MG PO EVERY 3 DAYS Scheduled PRN Betamethasone Dip (Betamethasone Dipropionat), 1 APPLN TOP BID PRN for UNDECIDED Clobetasol Propionate (Clobetasol Propionate), 1 APPLN TD BID PRN for UNDECIDED Diclofenac Sodium (Topical) (Voltaren 1% Top Gel), 2 GM TOP QID PRN for Pain Mometasone Furoate (Elocon), 1 APPLN TOP BID PRN for ECZEMA Miscellaneous Medications Betamethasone Dip Aug 0.05% (Diprolene 0.05%) Allergies Coded Allergies: Penicillins (Verified Allergy, Intermediate, RASH, 03/19/16) Unclassified Drugs (Verified Allergy, Intermediate, Rash-sucralose ( Splenda), 03/19/16) Physical Exam Vital Signs Date Time Temp Pulse Resp B/P (MAP) Pulse Ox O2 Delivery O2 Flow Rate FiO2 10/30/17 22:29 77 20 124/62 96 10/30/17 19:58 80 20 143/69 97 Room Air 10/30/17 17:32 73 18 134/68 96 Room Air 10/30/17 14:46 36.8 85 18 139/76 100 Room Air Physical Exam GENERAL: Patient is awake, alert, and in no acute distress. Patient is resting comfortably and showing no signs of anxiety EYES: The conjunctivae are clear. The pupils are round and reactive. EARS, NOSE, MOUTH AND THROAT: The nose is without any evidence of any deformity. Mucous membranes are moist tongue is midline NECK: The neck is nontender and supple. RESPIRATORY: Normal respiratory effort is noted there is no evidence of wheezing rhonchi or rales CARDIOVASCULAR: Regular rate and rhythm noted there no murmurs rubs or gallops normal S1 normal S2 GASTROINTESTINAL: The abdomen is soft. Bowel sounds are present in all quadrants. Abdomen is nontender BACK: There were postsurgical changes noted in most of the thoracic spine. There was diffuse tenderness to the thoracolumbar spine. MUSCULOSKELETAL/EXTREMITIES: There is no evidence of gross deformity full range of motion is noted in the hips and shoulders SKIN: There is no obvious evidence of any rash. There are no petechiae, pallor or cyanosis noted. NEUROLOGIC: Patient is awake alert and oriented x3, patellar reflexes are 2+ bilaterally, Achilles tendon reflexes absent bilaterally, great toe raise was symmetric. Medical Decision & Procedures ER Provider Diagnostic Interpretation: Radiology results as stated below per my review and radiologist interpretation: MRI OF THE BRAIN COMBO CLINICAL HISTORY: Bilateral lower extremity weakness and numbness. History of metastatic melanoma. COMPARISON STUDY: MRI of the brain dated 02/16/2016. TECHNIQUE: MRI of the brain was performed utilizing various T1 and T2-weighted sequences in the axial, sagittal, and coronal planes. Contrast-enhanced sequences were acquired following the administration of 7.5 cc of Gadavist. FINDINGS: Brain parenchyma: There is mild subcortical and periventricular microangiopathic disease. There is no hemorrhage or mass effect. There is no restricted diffusion to suggest acute ischemia. No enhancing mass lesion is identified on the postcontrast images. Raymond-white matter differentiation is preserved. No extra-axial fluid collection is seen. The cerebellar tonsils are normal in configuration. Ventricles, sulci, and cisterns: Normal in configuration. Pituitary and sella: Unremarkable. Intracranial vasculature: Normal flow voids are maintained at the skull base. Orbits: The bony orbits are grossly intact. Orbital contents are normal in appearance noting bilateral ocular lens implants. Sinuses and mastoids: Clear. Calvarium: Unremarkable. Cervical cord: Partially visualized cervical spinal cord is normal in morphology and signal intensity. IMPRESSION: No acute intracranial abnormality. Electronically signed by: Sterling Potter M.D. 10/30/2017 8:03 PM Dictated Date/Time: 10/30/2017 8:00 PM MRI OF THE CERVICAL SPINE COMBO CLINICAL HISTORY: Bilateral lower extremity weakness and numbness. History of metastatic melanoma. COMPARISON STUDY: CT scan of the neck dated 08/05/2015. TECHNIQUE: MRI of the cervical spine is performed using various T1 and T2-weighted sequences in the axial and sagittal planes. Contrast-enhanced images were acquired following the IV administration of 7.5 cc of Gadavist. The examination is significantly compromised by motion artifact. FINDINGS: Cervical spine: Vertebral body height is maintained throughout the cervical spine. There is minimal anterolisthesis at C4-C5 and minimal retrolisthesis at C5-C6. Alignment is otherwise preserved. Mild hyperlordosis is identified. The spinous processes appear intact. The atlantodental articulation appears maintained noting productive degenerative change. No destructive bony lesion is suggested in the cervical region. Intervertebral discs: Degenerative disc desiccation and loss of height is seen throughout the cervical spine. Loss of disc height is moderate at C5-C6. Spinal cord: The cervical spinal cord is normal in morphology and signal intensity. No abnormal enhancement is identified on the postcontrast sequences. C2-C3: Unremarkable. C3-C4: Uncovertebral and facet arthropathy cause moderate left neural foraminal stenosis. The central canal is clear. C4-C5: A posterior disc osteophyte complex effaces the ventral subarachnoid space. Facet arthropathy causes mild left-sided neural foraminal stenosis. C5-C6: A small posterior disc osteophyte complex abuts the ventral cord. Uncovertebral and facet arthropathy causes moderate to severe bilateral neural foraminal stenosis. C6-C7: A posterior disc osteophyte complex abuts the ventral cord. Uncovertebral arthropathy causes mild bilateral neuroforaminal stenosis. C7-T1: Unremarkable. Soft tissues: The paraspinous and prevertebral soft tissues are normal as visualized. Brain parenchyma: The partially imaged brain parenchyma the skull base is normal in appearance. IMPRESSION: 1. No destructive bony lesion is seen involving the cervical spine. 2. The cervical spinal cord is normal in morphology and signal intensity. 3. Cervical spondylosis as above. Electronically signed by: Sterling Potter M.D. 10/30/2017 9:16 PM Dictated Date/Time: 10/30/2017 8:10 PM MRI OF THE THORACIC SPINE COMBO CLINICAL HISTORY: Bilateral lower extremity weakness and numbness. 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 COMPARISON STUDY: MRI of the thoracic spine dated 02/01/2017. CT scan of the thoracic spine dictated 02/01/2017. PET/CT dated 05/31/2017. TECHNIQUE: MRI of the thoracic spine is performed utilizing various T1 and T2-weighted sequences in the axial and sagittal planes. Contrast-enhanced sequences are acquired following the IV administration of 7.5 cc of Gadavist. The examination is significantly compromised by motion artifact. FINDINGS: Again seen are postoperative changes from resection of T5. There is a severe compression deformity of T5. Susceptibility artifact at this level is consistent with previous vertebroplasty when correlated with the prior CT scan. Retropulsed fragments at this level contribute to moderate to severe compromise of the central canal. The minimum AP diameter measures approximately 5 mm. Again seen are postoperative changes from laminectomy from T3 through T8. Interpedicular screws have been removed previous. There is a mild chronic inferior endplate compression deformity of T4. There is a mild acute superior endplate insufficiency fracture of T6 with significant marrow edema. Vertebral body height is otherwise maintained throughout the thoracic spine. There is significant hyperkyphosis centered at T5. Again seen is a rind of abnormal enhancing paravertebral soft tissue edema at the T5 level which is unchanged from prior examinations. There is no clear evidence of enhancing soft tissue impingement on the central canal. There is myelomalacia identified within the cervical cord at the T5 level, likely related to chronic stenosis. No abnormal cord enhancement is suggested the postcontrast series. The conus medullaris terminates at the level of L1. Mild degenerative disc desiccation is noted throughout the thoracic spine. No large disc herniation is seen. Disc bulge is noted at L1-L2 and L2-L3. There is likely bilateral neural foraminal stenosis at T4-T5 and T5-T6. IMPRESSION: 1. Significantly motion compromised examination. 2. Again seen are postoperative changes involving T5 with a severe compression deformity at this level, evidence of previous vertebroplasty, and a large retropulsed fragment which causes moderate to severe central canal stenosis. Orthopedic hardware has been removed from previous. 3. There is myelomalacia and thinning of the cervical cord at the level of T5, almost certainly chronic. No abnormal enhancement is seen. 4. There is a mild acute superior endplate fracture of T6 with significant marrow edema. 5. There is a mild chronic inferior endplate compression deformity of T4. 6. There is unchanged appearance of an enhancing rind of paravertebral soft tissue at T5 as compared to prior study. This likely represents scarring/fibrosis. 7. There is no clear evidence of an enhancing soft tissue lesion impinging on the central canal. 8. No new bony metastatic lesion is suggested. Electronically signed by: Sterling Potter M.D. 10/30/2017 8:48 PM Dictated Date/Time: 10/30/2017 8:36 PM MRI LUMBAR SPINE COMBO CLINICAL HISTORY: Bilateral lower extremity weakness and numbness. History of metastatic melanoma. COMPARISON STUDY: PET/CT dated 05/31/2017. TECHNIQUE: MRI of the lumbar spine is performed utilizing various T1 and T2-weighted sequences in the axial and sagittal planes. Contrast-enhanced images are acquired following the IV administration of 7.5 cc of Gadavist. The Examination is significantly compromised by motion artifact. FINDINGS: Lumbar spine: Vertebral body height and alignment are maintained at the lumbar spine. Marrow signal intensity is heterogeneous. No destructive bony lesion is clearly seen. Tiny anterior osteophytes are seen throughout. The transverse and spinous processes appear intact. There is no evidence of spondylolysis. Degenerative endplate edema is seen at L2-L3. Intervertebral discs: Degenerative disc desiccation an loss of height are seen throughout the lumbar spine. Loss of height is severe at L5-S1, and mild/moderate at the remaining lumbar levels. Spinal cord: The partially imaged spinal cord is normal in morphology and signal intensity. The conus medullaris terminates at the level of L1. The nerve roots of the cauda equina are normal in morphology. No abnormal enhancement is seen on the postcontrast series. L1-L2: There is a small posterior disc bulge with annular fissure. There is no significant acquired compromise of the central canal. The neural foramina are patent. L2-L3: There is a small posterior disc bulge. There is no significant acquired compromise of the central canal. There is left-sided subarticular stenosis. The disc bulge may abut the exiting left L2 and the transiting bilateral L3 nerve roots. L3-L4: Facet arthropathy causes mild left neural foraminal stenosis. The central canal is patent. L4-L5: Facet arthropathy is of no consequence. The central canal neural foramina are patent. L5-S1: There is a posterior disc bulge. The central canal and neural foramina are clear. Mild facet arthropathy is of no consequence. Sacrum: The visualized sacrum is normal in morphology and signal intensity. Soft tissues: There is fatty atrophy of the paraspinous musculature. The partially visualized retroperitoneal structures are grossly unremarkable but incompletely assessed. IMPRESSION: 1. There is no convincing MRI evidence of metastatic disease involving the lumbar spine. 2. There is no disc herniation or central canal stenosis. 3. Mild lumbosacral spondylosis as above. Electronically signed by: Sterling Potter M.D. 10/30/2017 9:17 PM Dictated Date/Time: 10/30/2017 8:17 PM Laboratory Results 10/30/17 15:50 Red Blood Count 4.06, Mean Corpuscular Volume 91.4, Mean Corpuscular Hemoglobin 30.8, Mean Corpuscular Hemoglobin Concent 33.7, Mean Platelet Volume 10.5, Neutrophils (%) (Auto) 52.6, Lymphocytes (%) (Auto) 29.9, Monocytes (%) (Auto) 12.0, Eosinophils (%) (Auto) 4.9, Basophils (%) (Auto) 0.6, Neutrophils # (Auto ) 1.70, Lymphocytes # (Auto) 0.97, Monocytes # (Auto) 0.39, Eosinophils # (Auto ) 0.16, Basophils # (Auto) 0.02 10/30/17 15:50 Test 10/30/17 15:20 10/30/17 15:50 Urine Color YELLOW Urine Appearance CLEAR (CLEAR) Urine pH 6.5 (4.5-7.5) Urine Specific [place] 1.012 (1.000-1.030) Urine Protein NEG (NEG) Urine Glucose (UA) NEG (NEG) Urine Ketones NEG (NEG) Urine Occult Blood NEG (NEG) Urine Nitrite NEG (NEG) Urine Bilirubin NEG (NEG) Urine Urobilinogen NEG (NEG) Urine Leukocyte Esterase TRACE (NEG) Urine WBC (Auto) 1-5 /hpf (0-5) Urine RBC (Auto) 0-4 /hpf (0-4) Urine Hyaline Casts (Auto) 0 /lpf (0-5) Urine Epithelial Cells (Auto) 0-5 /lpf (0-5) Urine Bacteria (Auto) NEG (NEG) White Blood Count 3.24 K/uL (4.8-10.8) Red Blood Count 4.06 M/uL (4.2-5.4) Hemoglobin 12.5 g/dL (12.0-16.0) Hematocrit 37.1 % (37-47) Mean Corpuscular Volume 91.4 fL (80-100) Mean Corpuscular Hemoglobin 30.8 pg (25-34) Mean Corpuscular Hemoglobin Concent 33.7 g/dl (32-36) Platelet Count 131 K/uL (130-400) Mean Platelet Volume 10.5 fL (7.4-10.4) Neutrophils (%) (Auto) 52.6 % Lymphocytes (%) (Auto) 29.9 % Monocytes (%) (Auto) 12.0 % Eosinophils (%) (Auto) 4.9 % Basophils (%) (Auto) 0.6 % Neutrophils # (Auto) 1.70 K/uL (1.4-6.5) Lymphocytes # (Auto) 0.97 K/uL (1.2-3.4) Monocytes # (Auto) 0.39 K/uL (0.11-0.59) Eosinophils # (Auto) 0.16 K/uL (0-0.5) Basophils # (Auto) 0.02 K/uL (0-0.2) RDW Standard Deviation 44.6 fL (36.4-46.3) RDW Coefficient of Variation 13.4 % (11.5-14.5) Immature Granulocyte % (Auto) 0.0 % Immature Granulocyte # (Auto) 0.00 K/uL (0.00-0.02) Erythrocyte Sedimentation Rate 12 mm/hr (0-21) Prothrombin Time 10.2 SECONDS (9.0-12.0) Prothromb Time International Ratio 1.0 (0.9-1.1) Activated Partial Thromboplast Time 29.1 SECONDS (21.0-31.0) Partial Thromboplastin Ratio 1.1 Anion Gap 4.0 mmol/L (3-11) Est Creatinine Clear Calc Drug Dose 81.8 ml/min Estimated GFR () 101.9 Estimated GFR (Non- 87.9 BUN/Creatinine Ratio 14.4 (10-20) Calcium Level 8.8 mg/dl (8.5-10.1) Total Bilirubin 0.2 mg/dl (0.2-1) Direct Bilirubin < 0.1 mg/dl (0-0.2) Aspartate Amino Transf (AST/SGOT) 18 U/L (15-37) Alanine Aminotransferase (ALT/SGPT) 24 U/L (12-78) Alkaline Phosphatase 95 U/L (45-117) C-Reactive Protein 0.48 mg/dl (0-0.29) Total Protein 6.8 gm/dl (6.4-8.2) Albumin 3.6 gm/dl (3.4-5.0) Lipase 189 U/L (73-393) Laboratory results per my review. Medications Administered Medications (Trade) Dose Ordered Sig/Kristian Route Start Time Stop Time Status Last Admin Dose Admin Heparin Sodium (Porcine) (Heparin 100 Unit/ml 5ml Flush) 5 ml STK-MED ONCE .ROUTE 10/30/17 22:22 10/30/17 22:23 DC 10/30/17 22:22 5 ML ED Course 1456: The patient was evaluated in room B10. A complete history and physical examination were performed. 2150: Upon reevaluation, the patient is resting comfortably. I discussed the results and treatment plan with her and her . They verbalized agreement of the treatment plan. She will follow up with her primary neurosurgeon. She was discharged home. Medical Decision Prior records/ancillary studies reviewed and summarized above. Nursing notes reviewed. Additional history obtained from spouse. The patient's history was concerning for weakness. Differential diagnosis: Etiologies such as metabolic, infection, hypo/hyperglycemia, electrolyte abnormalities, cardiac sources, intracerebral event, toxicologic, neurologic, as well as others were entertained. The patient is a 67-year-old female who presented to the emergency department for an evaluation of lower extremity numbness and weakness. The patient has a history of metastatic melanoma which has been known to be in her thoracic spine. Lately she has been experiencing significant discomfort as well as difficulty ambulating. The patient was very concerned and was being seen by her primary care physician but at this time she is still awaiting follow-up appointments. The patient was very concerned that there could be a new issue with her spine. Certainly some of the complaints that she gave could be consistent with a cauda equina syndrome. This reason MRI was obtained. For completeness sake an MRI was obtained of the head neck thoracic and lumbar spine. I discussed patient's laboratory and radiographic studies with her. She was encouraged to follow-up with her primary spinal surgeon. She was given disks with her radiographic studies on them. She was also given the reports. I encouraged her to continue all medications as prescribed and avoid any strenuous activity. She was also encouraged to return the emergency department immediately if symptoms change worsen or the need arises. Medication Reconcilliation Current Medication List: was personally reviewed by me Blood Pressure Screening Patient's blood pressure: Elevated blood pressure Blood pressure disposition: Elevated BP felt to be situational Impression Primary Impression: Weakness Additional Impressions: Back pain Non-traumatic compression fracture of T6 thoracic vertebra Peripheral neuropathy Scribe Attestation The scribe's documentation has been prepared under my direction and personally reviewed by me in its entirety. I confirm that the note above accurately reflects all work, treatment, procedures, and medical decision making performed by me. Departure Information Dispostion Home / Self-Care Referrals Selina Pineda M.D. (PCP) Forms HOME CARE DOCUMENTATION FORM, IMPORTANT VISIT INFORMATION Patient Instructions ED Weakness Mervat BRENNAN [facility] Additional Instructions Call your primary neurosurgeon to schedule a follow-up appointment. Continue all medications as prescribed. Rest and avoid any strenuous activity. Follow- up with your primary care physician as soon as possible. Problem Qualifiers Additional Impressions: Back pain Back pain location: back pain in unspecified location Chronicity: unspecified Back pain laterality: midline Qualified Codes: M54.89 - Other dorsalgia Non-traumatic compression fracture of T6 thoracic vertebra Encounter type: initial encounter Qualified Codes: M48.54XA - Collapsed vertebra, not elsewhere classified, thoracic region, initial encounter for fracture Peripheral neuropathy Peripheral neuropathy type: polyneuropathy, unspecified Qualified Codes: G62.9 - Polyneuropathy, unspecified
[2017-10-30 22:29] VITALS: BP 124/62; PULSE 77; O2SAT 96
== END 2017-10-30 22:31 | disposition home or self-care (01) ==
LOC: C.EDB 14:44
DX: R53.1 Weakness (principal); M54.89 Other dorsalgia; M48.54XA Collapsed vertebra, not elsewhere classified, thoracic region, initial encounter for fracture; G62.9 Polyneuropathy, unspecified; Z85.820 Personal history of malignant melanoma of skin; E03.9 Hypothyroidism, unspecified; Z79.899 Other long term (current) drug therapy; Z88.0 Allergy status to penicillin; Z88.8 Allergy status to other drugs, medicaments and biological substances